=== PATIENT | male | born 1965 | race Caucasian/White ===

== ENCOUNTER 2023-12-09 09:42 | Observation (INO) | payer BC ==
--- NOTE | 2023-12-09 10:21 | ED ---
Back Pain HPI - General Chief Complaint: Back Pain/Injury Stated Complaint: Back pain Time Seen by Provider: 12/09/23 09:51 Source: patient, RN notes reviewed Mode of arrival: ambulatory Limitations: no limitations - History of Present Illness Initial Comments: This is a 58-year-old male who presents to the emergency department for abdominal pain. Patient has a history of herniated disks and is scheduled to have surgery with Dr. Menjivar in 4 days. He had a follow-up appointment with him in the office on Sunday and was able to walk and his pain was manageable. He was given a prescription for [place], which was initially working well. However, over the weekend symptoms got acutely worse. Denies any new injuries. They sent in a prescription for Percocet, however he did not like how this made him feel and he went back to the [place], but doubled the dose to 10 mg. He is also on steroids. Not taking any muscle relaxants. Denies any loss of bowel/bladder control or saddle anesthesia. States that he has been unable to sleep due to the worsening pain. MD Complaint: back pain - Related Data Home Medications Medication Instructions Recorded Confirmed HYDROcodone/APAP 5-325MG [[place] 1 tab PO Q8H PRN 12/09/23 12/09/23 5-325] predniSONE [Deltasone] See Taper PO DIRECTED 12/09/23 12/09/23 Allergies Allergy/AdvReac Type Severity Reaction Status Date / Time No Known Allergies Allergy Verified 12/09/23 15:59 Review of Systems ROS Statement: Those systems with pertinent positive or pertinent negative responses have been documented in the HPI. ROS Other: All systems not noted in ROS Statement are negative. Past Medical History Past Medical History: No Reported History History of Any Multi-Drug Resistant Organisms: None Reported Past Surgical History: No Surgical Hx Reported Past Psychological History: No Psychological Hx Reported Smoking Status: Never smoker Past Alcohol Use History: Occasional Past Drug Use History: None Reported General Exam Limitations: no limitations General appearance: alert, in no apparent distress Head exam: Present: atraumatic, normocephalic, normal inspection Respiratory exam: Present: normal lung sounds bilaterally. Absent: respiratory distress, wheezes, rales, rhonchi, stridor Cardiovascular Exam: Present: regular rate, normal rhythm, normal heart sounds. Absent: systolic murmur, diastolic murmur, rubs, gallop, clicks Back exam: Present: other (Tenderness to palpation over the right lower back) Neurological exam: Present: alert, oriented X3, CN II-XII intact Psychiatric exam: Present: normal affect, normal mood Skin exam: Present: warm, dry, intact, normal color. Absent: rash Course Vital Signs 12/09/23 12/09/23 12/09/23 09:46 11:55 14:57 Temperature 98.6 F 98 F 98.2 F Pulse Rate 79 61 100 Respiratory 18 18 18 Rate Blood Pressure 153/91 151/82 149/67 O2 Sat by Pulse 97 97 96 Oximetry Medical Decision Making - Medical Decision Making This is a 58 year old male who presents to the emergency department for back pain. Was pt. sent in by a medical professional or institution? @ -No Did you speak to anyone other than the patient for history? @ -No Did you review nursing and triage notes? @ -Yes, and I agree, it is accurate with regards to the patient's symptoms. Were old charts reviewed? @ -No Differential Diagnosis? @ -Differential Back Pain: Strain, zoster, cauda equina syndrome, epidural abscess, vertebral osteomyelitis, discitis, fracture, subluxation, disc herniation, DJD, spinal stenosis, dissection, AAA, pancreatitis, peptic ulcer disease, pyelonephritis, kidney stone, this is not meant to be an all-inclusive list. EKG interpreted by me (3pts min.)? @ -Not obtained X-rays interpreted by me (1pt min.)? @ -Chest x-ray obtained, my interpretation identifies no localized consolidations or infiltrates. CT interpreted by me (1pt min.)? @ -Not obtained U/S interpreted by me (1pt. min.)? @ -Not obtained What testing was considered but not performed? (CT, X-rays, U/S, labs)? Why? @ -None What meds were considered but not given? Why? @ -None Did you discuss the management of the patient with other professionals? @ -Yes, Dr. Aguilar, orthopedics, who advised admission to medicine. Dr. Seals accepts the patient for admission to medicine. Did you reconcile home meds? @ -No Was smoking cessation discussed for >3mins.? @ -No Was critical care preformed (if so, how long)? @ -No Were there social determinants of health that impacted care today? How? (Homelessness, low income, unemployed, alcoholism, drug addiction, transportation, low edu. Level, literacy, decrease access to med. care, skilled nursing, rehab)? @ -No Was there de-escalation of care discussed even if they declined? (Discuss DNR or withdrawal of care, Hospice)? @ -No What co-morbidities impacted this encounter? (DM, HTN, Smoking, COPD, CAD, Cancer, CVA, Hep., AIDS, mental health diagnosis, sleep apnea, morbid obesity)? @ -Herniated disks Was patient admitted / discharged? @ -Admitted. Patient had a lab order with him for preoperative testing including lab work, an EKG, and chest x-ray. Patient was registered on an outpatient basis as well, so this could be completed for him with the order he had and sent to the ordering providers. We tried multiple rounds of pain medication including Toradol, Dilaudid, Norflex, and Valium. Each time the patient only had temporary improvement in symptoms, however it was not sustained and he did not feel like he would be able to go home and manage his symptoms. He did not have any neurological deficits such as loss of bowel/bladder control or saddle anesthesia. Case discussed with orthopedics, who advised admission to medicine. Patient admitted to medicine for intractable back pain. Orthopedics listed as consult. Lab work and chest x-ray obtained during visit today was reviewed and found to be unremarkable. Undiagnosed new problem with uncertain prognosis? @ -None Drug Therapy requiring intensive monitoring for toxicity (Heparin, Nitro, Insulin, Cardizem)? @ -None Were any procedures done? @ -None Diagnosis/symptom? @ -Intractable back pain Acute, or Chronic, or Acute on Chronic? @ -Acute Uncomplicated (without systemic symptoms) or Complicated (systemic symptoms)? @ Uncomplicated Side effects of treatment? @ -None Exacerbation, Progression, or Severe Exacerbation] @ -Not applicable Poses a threat to life or bodily function? @ -Yes, patient has been unable to function due to his pain. This case was discussed in detail with the attending ED physician, Dr. Ramirez. Presentation, findings, and treatment plan discussed in detail as well. - Radiology Data Radiology results: report reviewed, image reviewed Disposition Clinical Impression: Intractable back pain, Herniated disc Disposition: ADMITTED IP TO THIS [facility] Time of Disposition: 15:28
[2023-12-09] MEDS: KETOROLAC 15 MG/ML 1 ML VIAL IVP STA (10:54)
[2023-12-09] MEDS: LIDOCAINE 4% PATCH TOPICAL ONE (10:55)
[2023-12-09] MEDS: DEXAMETHASONE SOD PHOSPHATE 10 MG/ML 1 ML VIAL IVP STA (10:55)
[2023-12-09] MEDS: ORPHENADRINE 30 MG/ML 2 ML VIAL IVP STA (10:56)
[2023-12-09] MEDS: HYDROmorphone 1 MG/ML 1 ML SYRINGE IVP STA ×2 (10:57→12:01)
--- NOTE | 2023-12-09 13:59 | XR ---
EXAMINATION TYPE: XR chest 2V DATE OF EXAM: 12/09/2023 COMPARISON: NONE HISTORY: Presurgical TECHNIQUE: Frontal and lateral views of the chest are obtained. FINDINGS: There is no focal air space opacity, pleural effusion, or pneumothorax seen. The cardiac silhouette size is within normal limits. The osseous structures are intact. IMPRESSION: No acute cardiopulmonary process.
[2023-12-09] MEDS ORDERED: ONDANSETRON 4 MG/2 ML VIAL IVP PRN (15:28)
[2023-12-09] MEDS ORDERED: HYDROmorphone 0.5 MG/0.5 ML SYRINGE IVP PRN (15:28)
[2023-12-09] MEDS ORDERED: ACETAMINOPHEN TAB 325 MG TAB PO PRN (15:28)
[2023-12-09] MEDS ORDERED: IBUPROFEN 400 MG TAB PO PRN (15:28)
[2023-12-09] MEDS ORDERED: NALOXONE 0.4 MG/ML 1 ML VIAL IV PRN (15:28)
[2023-12-09] MEDS: HYDROmorphone 1 MG/ML 1 ML SYRINGE IVP PRN (16:15)
[2023-12-10] MEDS: MELATONIN 5 MG TABLET PO PRN (04:38)
[2023-12-10] MEDS: PANTOPRAZOLE 40 MG/10 ML VIAL IV SCH (07:38)
--- NOTE | 2023-12-10 08:43 | P.CNOR ---
History of Present Illness - [facility] Consult date: 12/10/23 Requesting physician: Cecille Reeves Consult reason: low back pain, other (Right lower extremity radiculopathy with weakness) History of present illness: Patient is a pleasant 58-year-old male who is known to our service who is seen and examined at the bedside with his family present. He is known to have an L4- 5 herniated nucleus pulposus with spinal stenosis with right lower extremity radiculopathy and weakness. He was scheduled to undergo L4-5 laminectomy and decompression with discectomy this coming , 12/13/2023, at the [facility]. His pain became intractable and he was unable to manage his pain at home. He presented to the emergency department for further evaluation. Given his significant pain and weakness he has had difficulty with his m obilization and activities of daily living. He was admitted for further evaluation and treatment. He has difficulty ambulating to the restroom. He has pain with standing on his right lower extremity. He has weakness with his dorsiflexion and EHL on the right. He has pain that radiates down the right lower extremity with numbness over the right dugan. He admits to some right-sided groin pain. He also has some right-sided low back pain. He denies any left lower extremity weakness or radiculopathy. He feels he is failing conservative treatment options would like to discuss proceeding forward surgical intervention during his admission to the hospital. He ate breakfast this morning but has not eaten since 7:45 AM. He is receiving IV Dilaudid for pain control. He also received IV Valium for pain control. Past Medical History Past Medical History: No Reported History History of Any Multi-Drug Resistant Organisms: None Reported Past Surgical History: No Surgical Hx Reported Past Psychological History: No Psychological Hx Reported Smoking Status: Never smoker Past Alcohol Use History: Occasional Past Drug Use History: None Reported Medications and Allergies Home Medications Medication Instructions Recorded Confirmed Type HYDROcodone/APAP 5-325MG [[place] 1 tab PO Q8H PRN 12/09/23 12/09/23 History 5-325] predniSONE [Deltasone] See Taper PO DIRECTED 12/09/23 12/09/23 History Allergies Allergy/AdvReac Type Severity Reaction Status Date / Time No Known Allergies Allergy Verified 12/09/23 15:59 Physical Examination Physical exam: Patient is awake, alert, and oriented 3 Vital signs stable Good chest excursion with deep inspiration and expiration Examination of lumbar spine reveals skin is intact with no abrasions, lacerations, or bruises; no erythema, purulence or signs of infection Dorsiflexion, plantarflexion, and extensor hallucis longus 5/5 on the left Dorsiflexion 4/5 on the right EHL 3/5 on the right Plantarflexion 5/5 on the right Positive straight leg test on the right Negative straight leg test on the left No signs or symptoms of DVT; no calf pain No pain with internal and external rotation of the hips bilaterally Neurovascularly intact Assessment and Plan Assessment: Assessment: L4-5 herniated nucleus pulposus Lumbar stenosis Right lower extremity radiculopathy Right lower extremity weakness Difficulty with ambulation due to pain and weakness on the right lower extremity Low back pain (1) Lumbar herniated disc Current Visit: Yes Status: Acute Code(s): M51.26 - OTHER INTERVERTEBRAL DISC DISPLACEMENT, LUMBAR REGION SNOMED Code(s): 371960906 (2) Lumbar stenosis Current Visit: Yes Status: Acute Code(s): M48.061 - SPINAL STENOSIS, LUMBAR REGION WITHOUT NEUROGENIC ARSH SNOMED Code(s): 16616776 (3) Right leg weakness Current Visit: Yes Status: Acute Code(s): R29.898 - OTH SYMPTOMS AND SIGNS INVOLVING THE MUSCULOSKELETAL SYSTEM SNOMED Code(s): 579767080 (4) Lumbar back pain with radiculopathy affecting right lower extremity Current Visit: Yes Status: Acute Code(s): M54.16 - RADICULOPATHY, LUMBAR REGION SNOMED Code(s): 252605522 Plan: Plan: 1. He is known to have an L4-5 herniated nucleus pulposus with spinal stenosis with right lower extremity radiculopathy and weakness. He was scheduled to undergo L4-5 laminectomy and decompression with discectomy this coming , 12/13/2023, at the [facility]. His pain became intractable and he was unable to manage his pain at home. He presented to the emergency department for further evaluation. Given his significant pain and weakness he has had difficulty with his mobilization and activities of daily living. He was admitted for further evaluation and treatment. He has difficulty ambulating to the restroom. He has pain with standing on his right lower extremity. He has weakness with his dorsiflexion and EHL on the right. He has pain that radiates down the right lower extremity with numbness over the right dugan. He admits to some right-sided groin pain. He also has some right-sided low back pain. He denies any left lower extremity weakness or radiculopathy. He feels he is failing conservative treatment options would like to discuss proceeding forward surgical intervention during his admission to the hospital. Given his significant symptoms with difficulty with controlling his symptoms in the outpatient setting, evidence of L4-5 herniated nucleus pulposus with stenosis, and his known right lower extremity radiculopathy with weakness, we will currently plan to proceed forward with scheduling surgical intervention during his admission to the hospital. I have made him NPO effective now. He ate breakfast this morning but has not eaten since 7:45 AM. We will schedule him for an L4-5 laminectomy and decompression with discectomy. We will continue to follow the patient closely, if he is able to be added to the surgical schedule today, we will plan to proceed forward with surgical intervention at L4-5 this afternoon, 12/10/2023. It was discussed in significant detail that surgical intervention will most likely provide some improvement of his symptoms but surgical intervention will most likely not alleviate all of his symptoms. I answered all the patient's questions the best of my ability. The patient would like to proceed forward with surgical intervention and will sign informed consent. Time with Patient: Greater than 30 (Including obtaining history, physical examination, reviewing of imaging, and dictation.)
--- NOTE | 2023-12-10 13:33 | P.HPIM ---
History of Present Illness H&P Date: 12/10/23 History of present illness; patient is a 58-year-old gentleman with past medical history significant for back pain who presented to the ER for worsening back pain. Patient has history of L4-5 herniated nucleus pulposus with spinal stenosis and was scheduled for L4-5 laminectomy and decompression on 12/13/2023. Patient stated that over the last 2 to 3 days his pain has been worsening. Patient has increased weakness of his right lower extremity and had a hard time walking. Patient was taking his pain medications but they were not working, because of his worsening pain, patient came to the ER Patient admitted to internal medicine service REVIEW OF SYSTEMS: CONSTITUTIONAL: No fever, no malaise, no fatigue. HEENT: No recent visual problems or hearing problems. Denied any sore throat. CARDIOVASCULAR: No chest pain, orthopnea, PND, no palpitations, no syncope. PULMONARY: No shortness of breath, no cough, no hemoptysis. GASTROINTESTINAL: No diarrhea, no nausea, no vomiting, no abdominal pain. NEUROLOGICAL: No headaches, no weakness, no numbness. HEMATOLOGICAL: Denies any bleeding or petechiae. GENITOURINARY: Denies any burning micturition, frequency, or urgency. MUSCULOSKELETAL/RHEUMATOLOGICAL: Mentioned above ENDOCRINE: Denies any polyuria or polydipsia. The rest of the 14-point review of systems is negative. PHYSICAL EXAMINATION: GENERAL: The patient is alert and oriented x3, not in any acute distress. Well developed, well nourished. HEENT: Pupils are round and equally reacting to light. EOMI. No scleral icterus. No conjunctival pallor. Normocephalic, atraumatic. No pharyngeal erythema. No thyromegaly. CARDIOVASCULAR: S1 and S2 present. No murmurs, rubs, or gallops. PULMONARY: Chest is clear to auscultation, no wheezing or crackles. ABDOMEN: Soft, nontender, nondistended, normoactive bowel sounds. No palpable organomegaly. MUSCULOSKELETAL: No joint swelling or deformity. EXTREMITIES: No cyanosis, clubbing, or pedal edema. NEUROLOGICAL: Gross neurological examination did not reveal any focal deficits. SKIN: No rashes. Assessment and plan L4-5 herniated nucleus pulposus Lumbar stenosis Right lower extremity radiculopathy Right lower extremity weakness Monitor vital signs Monitor CBC Monitor CMP Continue pain management Continue IV fluids Continue antiemetics Orthopedic spine consulted Labs and medication were reviewed.. Continue same treatment. Continue with symptomatic treatment. Resume home medication. Monitor labs and vitals. DVT and GI prophylaxis. Further recommendations as per clinical course of the patient Dictation was produced using [employer] dictation software. please excuse any grammatical, word or spelling errors. Past Medical History Past Medical History: No Reported History History of Any Multi-Drug Resistant Organisms: None Reported Past Surgical History: No Surgical Hx Reported Past Psychological History: No Psychological Hx Reported Smoking Status: Never smoker Past Alcohol Use History: Occasional Past Drug Use History: None Reported Medications and Allergies Home Medications Medication Instructions Recorded Confirmed Type HYDROcodone/APAP 5-325MG [[place] 1 tab PO Q8H PRN 12/09/23 12/09/23 History 5-325] predniSONE [Deltasone] See Taper PO DIRECTED 12/09/23 12/09/23 History Allergies Allergy/AdvReac Type Severity Reaction Status Date / Time No Known Allergies Allergy Verified 12/09/23 15:59 Physical Exam Vitals: Vital Signs Temp Pulse Pulse Resp BP BP Pulse Ox 12/10/23 07:37 98.0 F 63 19 154/80 95 12/10/23 00:44 98.0 F 66 17 139/74 98 12/09/23 20:13 98.4 F 72 17 156/76 96 12/09/23 18:28 98.5 F 66 18 133/72 96 12/09/23 14:57 98.2 F 100 18 149/67 96 Intake and Output 12/09/23 12/10/23 12/10/23 22:59 06:59 14:59 Other: Voiding Method Toilet Urinal # Voids 2 3 Weight 77.111 kg Thrombosis Risk Factor Assmnt - Choose All That Apply Any of the Below Risk Factors Present?: Yes Each Factor Represents 1 point: Age 41-60 years Thrombosis Risk Factor Assessment Total Risk Factor Score: 1 Thrombosis Risk Factor Assessment Level: Low Risk
[2023-12-10 15:49] LABS: Basophils % (A) 0 %; Eosinophils # (A) 0.1 k/uL (0-0.7); Eosinophils % (A) 1 %; HCT 48.3 % (39.0-53.0); HGB 16.3 gm/dL (13.0-17.5); Lymphocytes % (A) 18 %; MCH 30.5 pg (25.0-35.0); MCHC 33.9 g/dL (31.0-37.0); Mean Platelet Volume 7.7; Monocytes # (A) 0.7 k/uL (0-1.0); Monocytes % (A) 6 %; Neutrophils # (A) 7.9 k/uL (1.3-7.7); Neutrophils % (A) 73 %; Platelet Count 239 k/uL (150-450); RBC 5.36 m/uL (4.30-5.90); RDW 12.6 % (11.5-15.5); WBC 10.7 k/uL (3.8-10.6)
[2023-12-10 15:58] LABS: ALT 40 U/L (4-49); AST 25 U/L (17-59); African American GFR (CKD) >90 (>60 ml/min/1.73 sqM); Albumin 4.1 g/dL (3.5-5.0); Albumin/Globulin Ratio 1.9; Alkaline Phosphatase 67 U/L (38-126); Anion Gap 6 mmol/L; Blood Urea Nitrogen 19 mg/dL (9-20); Calcium 9.2 mg/dL (8.4-10.2); Carbon Dioxide 29 mmol/L (22-30); Chloride 103 mmol/L (98-107); Globulin 2.2 g/dL; Glucose 94 mg/dL (74-99); Non-African American GFR(CKD) >90 (>60 ml/min/1.73 sqM); Potassium 4.3 mmol/L (3.5-5.1); Sodium 138 mmol/L (137-145); Total Bilirubin 1.3 mg/dL (0.2-1.3); Total Protein 6.3 g/dL (6.3-8.2)
[2023-12-10] MEDS ORDERED: ROCURONIUM 10 MG/ML (5 ML VIAL) IV ONE (16:37)
[2023-12-10] MEDS ORDERED: MIDAZOLAM 2 MG/2 ML VIAL ONE (16:37)
[2023-12-10] MEDS ORDERED: PROPOFOL 10 MG/ML 20 ML VIAL IV ONE (16:37)
[2023-12-10] MEDS ORDERED: NEOSTIGMINE 1 MG/ML 10 ML VIAL ONE (16:37)
[2023-12-10] MEDS ORDERED: LIDOCAINE 1% INJ 10MG/ML (20 ML MDV) ONE (16:37)
[2023-12-10] MEDS ORDERED: PHENYLEPHRINE 10 MG/ML VIAL ONE (16:37)
[2023-12-10] MEDS: IV FLUID CONTINUATION 1,000 ML IV ONE (16:37)
[2023-12-10] MEDS ORDERED: ceFAZolin 1 GM/50 ML BAG (PMX) ONE (16:37)
[2023-12-10] MEDS ORDERED: fentaNYL (PF) 50 MCG/ML 2 ML AMP ONE (16:37)
[2023-12-10] MEDS: SODIUM CHLORIDE 0.9% 50 ML IV ONE (16:37)
[2023-12-10] MEDS ORDERED: GLYCOPYRROLATE 0.2 MG/ML 2 ML VIAL ONE (16:37)
[2023-12-10] MEDS ORDERED: SUCCINYLCHOLINE CHLORIDE 200 MG/10 ML VIAL IV ONE (16:37)
[2023-12-10] MEDS: GELATIN SPONGE,ABSORB (LARGE) 1 EACH SPONGE TOPICAL ONE (17:19)
[2023-12-10] MEDS: LIDOCAINE 0.5%-EPI 1:200,000 50 ML VIAL SQ ONE ×2 (17:20)
[2023-12-10] MEDS: BUPIVACAINE (PF) 0.25% 30 ML VIAL SQ ONE ×2 (17:21)
[2023-12-10] MEDS: methylPREDNISolone ACETATE 80 MG/ML 1 ML VIAL MISCELLANE ONE (17:22)
[2023-12-10] MEDS: THROMBIN (BOVINE) 5,000 UNIT VIAL MISCELLANE ONE (17:23)
[2023-12-10] MEDS: LACTATED RINGERS 1,000 ML IV ONE (17:41)
--- NOTE | 2023-12-10 17:51 | XR ---
EXAMINATION TYPE: XR lumbar spine 1V, FL guidance operating room Intraoperative/procedural fluoroscop ic services were provided. Total fluoroscopy time is 1.8 seconds with a total of 2 submitted images t o PACS. Please see the operative/procedural note for further details. DAP: 0.2 421 2 Gycm2
[2023-12-10] MEDS: KETOROLAC 15 MG/ML 1 ML VIAL IVP PRN (19:49)
[2023-12-10] MEDS ORDERED: HYDROmorphone 1 MG/ML 1 ML SYRINGE IVP PRN (22:32)
[2023-12-10] MEDS ORDERED: BENZOCAINE/MENTHOL LOZENG 1 EACH LOZENGE MUCOUS MEM PRN (22:32)
[2023-12-10] MEDS ORDERED: HYDROmorphone 0.5 MG/0.5 ML SYRINGE IVP PRN (22:32)
[2023-12-10] MEDS ORDERED: CYCLOBENZAPRINE 10 MG TAB PO PRN (22:33)
[2023-12-10] MEDS ORDERED: ONDANSETRON 4 MG/2 ML VIAL IVP PRN (22:33)
[2023-12-10] MEDS ORDERED: HYDROcodone/APAP 5-325MG 1 EACH TAB PO PRN (22:35)
--- NOTE | 2023-12-10 22:42 | P.OP ---
Date of Procedure: 12/10/23 Preoperative Diagnosis: Herniated nucleus pulposus L4-5, stenosis L4-5, right lower extremity radiculopathy, right lower extremity weakness Postoperative Diagnosis: Same Anesthesia: GETA Pathology: none sent Condition: stable Disposition: PACU Description of Procedure: BRIEF OPERATIVE NOTE Preoperative Diagnosis: Herniated nucleus pulposus L4-5, spinal stenosis L4-5, right lower extremity colopathy, right lower extremity weakness, extruded disc fragments L4-5 Postoperative Diagnosis: Same Procedure: Laminectomy and decompression L4-5 Discectomy for decompression L4-5 Use of fluoroscopic guidance Surgeon: Dr. Menjivar Fire Prevention Captain: cleaner assistant Anesthesia: General anesthesia per Dr. Em Estimated blood loss: Approximately 75 cc Complications: None apparent Components implanted: None Disposition: To recovery room in good stable condition. OPERATIVE INDICATIONS The patient has been having issues in their lower back and lower extremities. His issues have been going on for several months they have started to notice significant worsening region coming occasionally incapacitated with his pain. He is actually having significant weakness in his lower extremity as well and this is impairing with his work and his regular activities. But has very has had to crawl at home and was unable to even get in and out of his car due to his pain. The patient has been through conservative treatment. We evaluated him and with his weakness in his discontinuations with severe stenosis L4-5 correlated with his symptoms we felt that he would be a good candidate for surgical intervention. We had actually schedule him to proceed with surgery later this week however his symptoms became so severe he was almost incapacitated at home that he had presented to the emergency room possibility of proceeding with surgical intervention and agreed to proceed with surgery. We discussed various treatment options including surgery, and the patient wishes to proceed with surgery We discussed the risk, patient's alternatives and benefits of surgery including but not limited to, risk of bleeding risk of infection, risk of need for further surgery, risk of decreased, loss of motion, loss of function, nerve damage, paralysis, heart attack, blindness and . OPERATIVE SUMMARY After discussing all the risks, patient alternatives and benefits at length, the patient elected to proceed with surgical intervention, signed informed consent, and presented for their procedure. The patient was seen and examined in the preoperative holding area and the surgical site was marked. The patient was given antibiotics and brought to the operating room. The patient was sedated and intubated by anesthesia in standard fashion. The patient was positioned on to the operating room table in a prone position on the appropriate frame which was well-padded and well molded. We were careful to pad any bony prominences and pressure points. We were careful to maintain the patient's cervical spine and good neutral alignment and position throughout. The patient was prepped and draped in a normal standard fashion. An appropriate timeout and keystone protocol performed. We were able to proceed with the surgery. Fluoroscopy was utilized to establish the appropriate level. The local wound area was infiltrated with local anesthetic. An incision was made at the midline longitudinally over the appropriate levels. Dissection was taken down subcutaneously to the level of the fascia which was split midline. Dissection was taken over the lamina. Intraoperative fluoroscopy was taken which showed a marker at the appropriate level. With the appropriate level positively confirmed, at L4 -5 we were able to proceed with laminectomy. The wound was copiously irrigated and suctioned dry as had been done periodically throughout the case. I performed a laminectomy with a combination of curettes and a high-speed bur and [place] rongeurs. A small medial facetectomy was performed again further access. A partial foraminotomy was also performed. Portions of the ligamentum flavum were taken down to expose the dura and traversing nerve root. I was able to mobilize the traversing nerve root and gain access to the disc space. Note was made of obvious compression from the disc. There were numerous large extruded fragments of disc causing severe compression and distortion at the traversing nerve root and the thecal sac dura. Protecting the soft tissue structures, a small annulotomy was established. I was able to perform discectomy and remove any extruded disc fragments and any loose fragments from within the disc itself. There is significant disc desiccation and loss of disc noted. There is some disc desiccation noted. I tried to preserve the disc annulus that appeared stable. There were no further extruded fragments noted. We were able to get excellent decompression of the traversing nerve root and the nerve roots freely mobile. There are no further fragments or herniation. There is no evidence of dural tear or leak. Good hemostasis maintained. The wound was copiously irrigated and suctioned dry. Good decompression and discectomy was noted. We were able to proceed with closure. The fascia was closed for a watertight closure. The subcuticular tissue was closed with absorbable suture. The wound was cleaned and dried and dressed with the appropriate dressing. The drapes were broken down. The patient was gently rolled back onto their hospital bed being careful to maintain their cervical spine and good neutral alignment and position. They were woken up by anesthesia, extubated, and brought to the recovery room in good stable condition. The patient will be admitted to the hospital for observation and for appropriate postoperative care, medical management and monitoring. We will continue to follow them closely about the postoperative course.
[2023-12-10] MEDS: HYDROcodone/APAP 5-325MG 1 EACH TAB PO PRN (23:23)
[2023-12-10] MEDS: SODIUM CHLORIDE 0.9% 1,000 ML IV SCH (23:29)
[2023-12-11 07:57] VITALS: BP 123/72; PULSE 64; RESP 14; TEMP 98.4
--- NOTE | 2023-12-11 08:31 | P.PN ---
Progress Note - Text Progress Note Date: 12/11/23 Orthopedic spine: History of present illness: Patient is a pleasant 58-year-old male who is known to our service who is seen and examined at the bedside with his family present. He is known to have an L4- 5 herniated nucleus pulposus with spinal stenosis with right lower extremity radiculopathy and weakness. He was scheduled to undergo L4-5 laminectomy and decompression with discectomy this coming , 12/13/2023, at the [facility]. His pain became intractable and he was unable to manage his pain at home. He presented to the emergency department for further evaluation. Given his significant pain and weakness he has had difficulty with his mobilization and activities of daily living. He was admitted for further evaluation and treatment. Yesterday he underwent an L4-5 laminectomy and decompression with discectomy. Since that time he has had significant improvement of his right lower extremity pain. He continues to have some weakness with his dorsiflexion and EHL on the right but is very happy with his progress. He has some soreness at the incision site of his lumbar spine but feels his pain is well-controlled. He is not currently experiencing any significant pain in his right lower extremity. He is ready for discharge home today. He is admitted to medicine. He will need to be medically cleared prior to discharge. We did discuss he would be cleared for discharge from orthopedic spine standpoint. Physical Exam Laminectomy/Discectomy: Status post surgical day number 1 Patient is awake, alert, and oriented 3 Vital signs stable Good chest excursion with deep inspiration and expiration Examination of lumbar spine reveals skin is intact with no abrasions, lacerations, or bruises; no erythema, purulence or signs of infection Dorsiflexion, plantarflexion, and extensor hallucis longus 5/5 on the left Dorsiflexion 4/5 on the right EHL 3/5 on the right Plantarflexion 5/5 on the right Positive straight leg test on the right Negative straight leg test on the left Neurovascularly intact Dressing is clean, dry, and intact; no erythema, purulence, or signs of infection Assessment: Status post L4-5 laminectomy and decompression with discectomy L4-5 herniated nucleus pulposus Lumbar stenosis Right lower extremity radiculopathy Right lower extremity weakness Difficulty with ambulation due to pain and weakness on the right lower extremity Low back pain Plan: Patient has had significant improvement postoperatively in regards to his right lower extremity radiculopathy. He does continue to have ongoing weakness. At this time, patient is cleared for discharge home from an orthopedic spine standpoint. 1. Ambulate as tolerated; work with Physical Therapy 2. Continue Pain control with oral medications as needed. MAPS has been reviewed today, 12/11/2023, with an Overall Overdose Risk Score of . An "Opiod Start Talking" Form has been signed and placed in the patient's chart. A prescription has been written for hydrocodone 5 mg / 325 mg, 1 tab, every 8 hours, as needed for acute pain, dispense #21. Prescription is sent to the [facility] pharmacy located within [facility] per request of the patient. 3. Patient may shower with Optifoam dressing intact. 4. Patient may remove Optifoam dressing in 3 days and shower without a dressing at that time. 5. Patient should refrain from driving until at least after their first follow- up appointment in the office. 6. Patient should avoid excessive bending, twisting, lifting; avoid overhead lifting; no lifting greater than 10 pounds 7. Take medications as prescribed 8. Do not soak in tub 9. Medical management can continue to manage patient for patient's other medical diagnoses; patient is admitted to medicine 10. Patient can follow-up with Javan Ji PA-C or Dr. Eren Menjivar at [facility] in 2-3 weeks following discharge
[2023-12-11 08:42] LABS: Basophils # (A) 0.02 X 10*3/uL (0.00-0.10); Basophils % (A) 0.2 %; Eosinophils # (A) 0.02 X 10*3/uL (0.04-0.35); Eosinophils % (A) 0.2 %; HCT 43.5 % (39.6-50.0); HGB 15.5 g/dL (13.0-17.0); Lymphocytes # (A) 0.62 X 10*3/uL (0.90-5.00); Lymphocytes % (A) 5.9 %; MCHC 35.6 g/dL (32.0-37.0); Mean Platelet Volume 10.6 FL (9.5-12.2); Monocytes # (A) 0.75 X 10*3/uL (0.20-1.00); Monocytes % (A) 7.1 %; NRBC Per 100 WBC 0 X 10*3/uL (0.00-0.01); Neutrophils # (A) 9.01 X 10*3/uL (1.80-7.70); Neutrophils % (A) 85.7 %; Platelet Count 212 X 10*3/uL (140-440); RDW 12.1 % (11.5-14.5); WBC 10.51 X 10*3/uL (4.50-10.00)
[2023-12-11 08:58] LABS: ALT 39 U/L (10-49); AST 21 U/L (14-35); Albumin 4.1 g/dL (3.8-4.9); Albumin/Globulin Ratio 2.41 Ratio (1.60-3.17); Alkaline Phosphatase 73 U/L (41-126); BUN/Creat Ratio 15.89 Ratio (12.00-20.00); Blood Urea Nitrogen 14.3 mg/dL (9.0-27.0); Carbon Dioxide 24.6 mmol/L (21.6-31.8); Chloride 103 mmol/L (96-109); Globulin 1.7 g/dL (1.6-3.3); Glucose 104 mg/dL (70-110); Potassium 4.5 mmol/L (3.5-5.5); Sodium 139 mmol/L (135-145); Total Bilirubin 0.9 mg/dL (0.3-1.2); Total Protein 5.8 g/dL (6.2-8.2)
--- NOTE | 2023-12-11 10:43 | P.DS ---
Providers Date of admission: 12/09/23 15:20 Expected date of discharge: 12/11/23 Attending physician: Talib Seals MD Consults: 12/09/23 15:28 Consult Physician Urgent Consulting Provider: Kaur Menjivar Consult Reason/Comments: Intractable back pain, herniated disks Do you want consulting provider notified?: Yes Primary care physician: [facility] Course: Discharge diagnoses; L4-5 herniated nucleus pulposus S/p L4-5 laminectomy and decompression with discectomy Lumbar stenosis Right lower extremity radiculopathy Right lower extremity weakness Hospital course; patient is a 58-year-old gentleman with past medical history significant for back pain who presented to the ER for worsening back pain. Patient has history of L4-5 herniated nucleus pulposus with spinal stenosis and was scheduled for L4-5 laminectomy and decompression on 12/13/2023. Patient stated that over the last 2 to 3 days his pain has been worsening. Patient has increased weakness of his right lower extremity and had a hard time walking. Patient was taking his pain medications but they were not working, because of his worsening pain, patient came to the ER Patient admitted to internal medicine service 12/10. Patient seen and examined, S/p L4-5 laminectomy and decompression with discectomy . Currently patient is doing much better. Orthopedic has cleared the patient for discharge. PHYSICAL EXAMINATION: GENERAL: The patient is alert and oriented x3, not in any acute distress. Well developed, well nourished. HEENT: Pupils are round and equally reacting to light. EOMI. No scleral icterus. No conjunctival pallor. Normocephalic, atraumatic. No pharyngeal erythema. No thyromegaly. CARDIOVASCULAR: S1 and S2 present. No murmurs, rubs, or gallops. PULMONARY: Chest is clear to auscultation, no wheezing or crackles. ABDOMEN: Soft, nontender, nondistended, normoactive bowel sounds. No palpable organomegaly. MUSCULOSKELETAL: No joint swelling or deformity. EXTREMITIES: No cyanosis, clubbing, or pedal edema. NEUROLOGICAL: Gross neurological examination did not reveal any focal deficits. SKIN: Lumbar area surgical incision seen Dictation was produced using [employer] dictation software. please excuse any grammatical, word or spelling errors. Patient Condition at Discharge: Fair Plan - Discharge Summary New Discharge Prescriptions: New HYDROcodone/APAP 5-325MG [[place] 5] 1 each PO Q8HR PRN #21 tab PRN Reason: Pain Continue predniSONE [Deltasone] See Taper PO DIRECTED HYDROcodone/APAP 5-325MG [[place]am 5-325] 1 tab PO Q8H PRN PRN Reason: Pain Discharge Medication List HYDROcodone/APAP 5-325MG [[place]am 5-325] 1 tab PO Q8H PRN 12/09/23 [History] predniSONE [Deltasone] See Taper PO DIRECTED 12/09/23 [History] HYDROcodone/APAP 5-325MG [[place]sham 5] 1 each PO Q8HR PRN #21 tab 12/11/23 [Rx] Follow up Appointment(s)/Referral(s): Javan Ji PAC [PHYSICIAN BALL HOLDER] - 12/25/23 2:00 pm (Patient may follow-up with Javan Ji PA-C or Dr. Eren Menjivar at [facility] in 2-3 weeks following discharge.) Antonio Deleon DO [Primary Care Provider] - 1-2 days Activity/Diet/Wound Care/Special Instructions: 1. Patient may shower with Optifoam dressing intact. 2. Patient may remove Optifoam dressing in 3 days and shower without a dressing at that time. 3. Patient should refrain from driving until at least after their first follow- up appointment in the office. 4. Patient should avoid excessive bending, twisting, lifting; avoid overhead lifting; no lifting greater than 10 pounds 5. Take medications as prescribed 6. Do not soak in tub Discharge Disposition: HOME SELF-CARE
== END 2023-12-11 12:30 | disposition home or self-care (01) ==
LOC: EC 09:42 → 6NMEDSUR 15:20 → 4SSUR 17:45
PROVIDERS: ADMIT Internal Medicine; ATTEND Internal Medicine
DX: M51.16 Intervertebral disc disorders with radiculopathy, lumbar region (principal); M48.061 Spinal stenosis, lumbar region without neurogenic claudication; Z79.52 Long term (current) use of systemic steroids
CPT/HCPCS: 96376 ×4; 96365; 96366; 96375 ×2; 99285; 97161; 86900; 86901; 80053 ×2; 85025 ×2; 86850; 72020; 71046; 63047; G0378 ×4; J2250; J0330; J1100; J2360; J2710; J3360; J0690 ×3; J2001; J3010; J1170 ×2; J1885 ×3; J2704; C9113; J2371; J0665; J1010

== ENCOUNTER → 2023-12-09 | Outpatient (CLI) | payer BC | END | disposition home or self-care (01) | LOC: RADXRMAIN 10:24 | PROVIDERS: ATTEND Orthopaedic Surgery Orthopaedic Surgery of the Spine | DX: Z53.9 Procedure and treatment not carried out, unspecified reason (principal) ==

== ENCOUNTER → 2023-12-09 | Outpatient (CLI) | payer BC ==
[2023-12-09 11:13] LABS: Partial Thromboplastin Time 22.3 sec (22.0-30.0); Prothrombin Time 11.4 sec (10.0-12.5)
[2023-12-09 12:54] LABS: HCT 47.5 % (39.6-50.0); HGB 16.8 g/dL (13.0-17.0); MCH 30.7 pg (27.0-32.0); MCHC 35.4 g/dL (32.0-37.0); MCV 86.7 FL (80.0-97.0); Mean Platelet Volume 10.1 FL (9.5-12.2); NRBC Per 100 WBC 0 X 10*3/uL (0.00-0.01); Platelet Count 260 X 10*3/uL (140-440); RBC 5.48 X 10*6/uL (4.40-5.60); RDW 11.9 % (11.5-14.5); WBC 10.13 X 10*3/uL (4.50-10.00)
[2023-12-09 13:32] LABS: BUN/Creat Ratio 19.44 Ratio (12.00-20.00); Blood Urea Nitrogen 17.5 mg/dL (9.0-27.0); Chloride 103 mmol/L (96-109); Glucose 99 mg/dL (70-110); Potassium 4.1 mmol/L (3.5-5.5); Sodium 139 mmol/L (135-145)
[2023-12-09 13:33] LABS: Calcium 9.8 mg/dL (8.7-10.3); Carbon Dioxide 23.8 mmol/L (21.6-31.8)
[2023-12-09 18:42] LABS: Appearance,Urine Clear (Clear); Bilirubin,Urine Negative (Negative); Blood,Urine Negative (Negative); Color,Urine Light Yellow; Glucose,Urine (UA) Negative (Negative); Ketones,Urine Negative (Negative); Leukocyte Esterase,Urine Negative (Negative); Nitrite,Urine Negative (Negative); PH, Urine 6.5 (5.0-8.0); Protein,Urine Negative (Negative); Specific Gravity,Urine 1.016 (1.001-1.035); Urobilinogen,Urine <2.0 mg/dL (<2.0)
== END | disposition home or self-care (01) ==
LOC: LABMAIN 10:19
PROVIDERS: ATTEND Orthopaedic Surgery Orthopaedic Surgery of the Spine
DX: M41.86 Other forms of scoliosis, lumbar region (principal); M51.36 Other intervertebral disc degeneration, lumbar region; M43.16 Spondylolisthesis, lumbar region; M48.062 Spinal stenosis, lumbar region with neurogenic claudication; M51.16 Intervertebral disc disorders with radiculopathy, lumbar region; M79.604 Pain in right leg; M62.830 Muscle spasm of back; M54.59 Other low back pain; R29.2 Abnormal reflex; R53.1 Weakness; R26.9 Unspecified abnormalities of gait and mobility
CPT/HCPCS: 80048; 81003; 85027; 85610; 85730; 93005